=== PATIENT | male | born 1960 | race Two or more races ===

== ENCOUNTER 2017-03-16 01:53 | Emergency (ER) | payer MEDICAID, OTHER ==
[~2017-03-16] VITALS: Ht 170.2 cm; Wt 57.6 kg
--- NOTE | 2017-03-16 01:53 | NUR ---
BIBRA 62 FROM [facility] FOR C/O MIDSTERNAL CP AND SOB X 3 HOURS. PATIENT HAS HISTORY OF ANXIETY. PATIENT WAS GIVEN 162 OF ASA AND NITRO SPRAY X3 IN FIELD. PT IS ALERT AND ORIENTED X4. AMBULATORY WITH STEADY GAIT. PATIENT PLACED IN GOWN AND MONITOR. MD AT BEDSIDE FOR EVALUATION.
--- NOTE | 2017-03-16 01:58 | NUR ---
EMT AT BEDSIDE FOR EKG
[2017-03-16 02:09] LABS: BASOPHILS % (AUTO) 0.3 % (0.0-2.0); EOSINOPHILS % (AUTO) 0.8 % (0.0-6.0); HEMATOCRIT 37 % (39-51); HEMOGLOBIN 12.6 g/dL (13.5-17.5); LYMPHOCYTES # (AUTO) 1.7 /CMM (0.8-4.8); LYMPHOCYTES % (AUTO) 49.5 % (20.0-44.0); MEAN CORPUSCULAR HEMOGLOBIN 32 PG (26.0-33.0); MEAN CORPUSCULAR HGB CONC 34 g/dl (31.0-36.0); MEAN CORPUSCULAR VOLUME 93 fL (80-96); MONOCYTES # (AUTO) 0.3 /CMM (0.1-1.30); MONOCYTES % (AUTO) 8.8 % (2.0-12.0); NEUTROPHILS # (AUTO) 1.4 /CMM (1.8-8.9); NEUTROPHILS % (AUTO) 40.6 % (43.0-81.0); PLATELET COUNT (AUTO) 177 /CMM (150-450); RED BLOOD CELL COUNT(AUTO) 3.98 MIL/uL (4.5-6.0); WHITE BLOOD COUNT (AUTO) 3.4 K/uL (4.3-11.0)
[2017-03-16 02:20] LABS: CALCIUM, SERUM 9.4 mg/dL (8.5-10.1); CARBON DIOXIDE 23 mmol/L (21-32); CHLORIDE 101 mmol/L (98-107); CREATININE 0.8 mg/dL (0.6-1.3); GLUCOSE 89 mg/dL (74-106); POTASSIUM 3.7 mmol/L (3.5-5.1); SODIUM SERUM 139 mmol/L (136-145); UREA NITROGEN, BLOOD 8 mg/dL (7-18)
[2017-03-16 02:29] LABS: TROPONIN I < 0.017 ng/mL (0.00-0.056)
[2017-03-16 02:30] LABS: INR 0.89 (0.87-1.13); PROTHROMBIN TIME 9.4 SECS (9.5-12.7)
[2017-03-16 03:27] VITALS: BP 134/72
--- NOTE | 2017-03-16 03:28 | NUR ---
Patient discharged to home in stable condition. Written and verbal after care instructions given. Patient verbalizes understanding of instruction. Patient ambulatory with steady gait.
[2017-03-18] MEDS ORDERED: ESCI10TA PO (09:53)
== END 2017-03-16 03:33 | disposition home or self-care (01) ==
LOC: ER 01:54
DX: F41.9 Anxiety disorder, unspecified (principal); F17.200 Nicotine dependence, unspecified, uncomplicated
CPT/HCPCS: 36415; 71010-TC; 80048-TC; 84484-TC; 85025-TC; 85730-TC; A4606; J2060; Z7610

== ENCOUNTER 2017-03-16 08:20 | Inpatient (IN) | payer MEDICAID, OTHER ==
[~2017-03-16] VITALS: Ht 170.2 cm; Wt 67.6 kg
[2017-03-16 04:00] VITALS: BP 136/91
--- NOTE | 2017-03-16 08:25 | NUR ---
PATIENT PRESENTS TO ER C/O CHEST DISCOMFORT AND TIGHTNESS. STATING HE FEELS THE DISCOMFORT FROM ABDOMEN UP TO HIS THROAT. PATIENT IS A/OX 4. BREATHING EVEN AND UNLABORED. NO SOB. VITALS STABLE. SAFETY AND COMFORT MEASURES IN PLACE. AWAITING MD ORDERS.
--- NOTE | 2017-03-16 08:35 | NUR ---
NEW IV STARTED ON RAC, 18 G. BLOOD DRAWN AND SENT TO LAB.
--- NOTE | 2017-03-16 08:45 | NUR ---
PATIENT MEDICATED PER MD ORDERS.
[2017-03-16 08:48] LABS: BASOPHILS % (AUTO) 1.1 % (0.0-2.0); EOSINOPHILS % (AUTO) 0.3 % (0.0-6.0); HEMATOCRIT 36 % (39-51); HEMOGLOBIN 12.2 g/dL (13.5-17.5); LYMPHOCYTES # (AUTO) 1.1 /CMM (0.8-4.8); LYMPHOCYTES % (AUTO) 33.8 % (20.0-44.0); MEAN CORPUSCULAR HEMOGLOBIN 32 PG (26.0-33.0); MEAN CORPUSCULAR HGB CONC 34 g/dl (31.0-36.0); MEAN CORPUSCULAR VOLUME 93 fL (80-96); MONOCYTES # (AUTO) 0.5 /CMM (0.1-1.30); MONOCYTES % (AUTO) 16.6 % (2.0-12.0); NEUTROPHILS # (AUTO) 1.5 /CMM (1.8-8.9); NEUTROPHILS % (AUTO) 48.2 % (43.0-81.0); PLATELET COUNT (AUTO) 172 /CMM (150-450); RDW COEFFICIENT OF VARIATION 14.4 (11.5-15.0); RED BLOOD CELL COUNT(AUTO) 3.84 MIL/uL (4.5-6.0); WHITE BLOOD COUNT (AUTO) 3.1 K/uL (4.3-11.0)
--- NOTE | 2017-03-16 08:56 | NUR ---
PATIENT C/O EPIGASTRIC PAIN, STATING MAALOX HELPS SOMETIME. MD INFORMED, NEW ORDERS RECEIVED, WILL IMPLEMENT.
[2017-03-16 08:57] LABS: CALCIUM, SERUM 9.9 mg/dL (8.5-10.1); CARBON DIOXIDE 23 mmol/L (21-32); CHLORIDE 99 mmol/L (98-107); CREATININE 0.7 mg/dL (0.6-1.3); GLUCOSE 93 mg/dL (74-106); POTASSIUM 3.5 mmol/L (3.5-5.1); SODIUM SERUM 138 mmol/L (136-145); UREA NITROGEN, BLOOD 7 mg/dL (7-18)
[2017-03-16 09:05] LABS: TROPONIN I < 0.017 ng/mL (0.00-0.056)
[2017-03-16 09:10] LABS: INR 0.91 (0.87-1.13); PROTHROMBIN TIME 9.7 SECS (9.5-12.7)
[2017-03-16 09:22] LABS: BAND % (MANUAL) 3 % (0.0-5.0); BASOPHILS % (MANUAL) 0 % (0.0-2.0); EOSINOPHILS % (MANUAL) 0 % (0-4); LYMPHOCYTES % (MANUAL) 46 % (16-48); MONOCYTES % (MANUAL) 12 % (0-11.0); NEUTROPHILS % (MANUAL) 39 (42-76)
--- NOTE | 2017-03-16 10:01 | NUR ---
ROOM CHANGED TO [facility]
--- NOTE | 2017-03-16 10:10 | NUR ---
REPORT GIVEN TO RNSTEPHANIE FOR ADMISSION
--- NOTE | 2017-03-16 10:20 | NUR ---
PATIENT TRANSFERRED TO [facility] VIA ACLS PROTOCOL. RNSTEPHANIE TO PROVIDE NAKIA.
[2017-03-16 10:50] VITALS: BP 153/90
[2017-03-16 11:30] VITALS: BP 153/90
[2017-03-16 12:00] VITALS: BP 139/86
[2017-03-16 13:45] LABS: ALBUMIN 4.3 g/dL (3.4-5.0); BILIRUBIN,DIRECT 0.1 mg/dL (0.0-0.2); BILIRUBIN,TOTAL 0.4 mg/dL (0.2-1.0); TOTAL PROTEIN, SERUM 7.7 g/dL (6.4-8.2)
[2017-03-16 16:00] VITALS: BP 138/93
[2017-03-16 20:00] VITALS: BP 136/93
--- NOTE | 2017-03-16 20:00 | NUR ---
RN NOTES RECEIVED PATIENT IN BED, ALERT AND ORIENTED X4, ANXIOUS, NO SOB, NO RESPIRATORY DISTRESS, TOLERATING ROOM AIR, LUNG SOUNDS ARE CLEAR, SPO2 96%, COMPLAINING OF PAIN OF 6/10 TO CHEST, HEADACHE, UPPER BACK, RECEIVED NORCO FROM AM SHIFT, NOT DUE TO GIVE ANOTHER ONE YET. ABDOMEN SOFT AND NON-TENDER, ACTIVE BOWEL SOUNDS, RIGHT FOREARM PERIPHERAL LINE IS PATENT AND INFUSING WELL. NEEDS ATTENDED, CALL LIGHT WITHIN REACH.
[2017-03-17] VITALS: BP 134/85
[2017-03-17 04:00] VITALS: BP 136/91
[2017-03-17 06:00] VITALS: BP 136/89
--- NOTE | 2017-03-17 06:30 | NUR ---
RN NOTES PATIENT IN BED, ALERT AND AWAKE, NO SOB, NO RESPIRATORY DISTRESS, ON ROOM AIR, COMPLAINED OF PAIN DURING SHIFT, GIVEN NORCO 5/325 MG PO PRN FOR PAIN OF BACK OF NECK, CHEST AND UPPER BACK. ALSO GIVEN ATIVAN 1MG PO PRN FOR ANXIETY, SLEPT 4 HOURS INTERMITTENTLY, BEING AWAKEN FOR V/S. NEEDS ATTENDED, CALL LIGHT WITHIN REACH.
--- NOTE | 2017-03-17 07:30 | NUR ---
PT RECEIVED RESTING COMFORTABLY IN BED WITH EYES CLOSED. NO S/S OR C/O PAIN OR DISTRESS NOTED. SIDE RAILS UP X2, CALL LIGHT LEFT WITHIN REACH. WILL CONTINUE PLAN OF CARE.
[2017-03-17 07:33] LABS: BASOPHILS % (AUTO) 0.2 % (0.0-2.0); EOSINOPHILS # (AUTO) 0.1 /CMM (0.0-0.7); EOSINOPHILS % (AUTO) 1.6 % (0.0-6.0); HEMATOCRIT 37 % (39-51); HEMOGLOBIN 12.5 g/dL (13.5-17.5); LYMPHOCYTES # (AUTO) 0.9 /CMM (0.8-4.8); LYMPHOCYTES % (AUTO) 27.6 % (20.0-44.0); MEAN CORPUSCULAR HEMOGLOBIN 32 PG (26.0-33.0); MEAN CORPUSCULAR HGB CONC 34 g/dl (31.0-36.0); MEAN CORPUSCULAR VOLUME 94 fL (80-96); MONOCYTES # (AUTO) 0.6 /CMM (0.1-1.30); MONOCYTES % (AUTO) 16.3 % (2.0-12.0); NEUTROPHILS # (AUTO) 1.9 /CMM (1.8-8.9); NEUTROPHILS % (AUTO) 54.3 % (43.0-81.0); PLATELET COUNT (AUTO) 143 /CMM (150-450); RED BLOOD CELL COUNT(AUTO) 3.91 MIL/uL (4.5-6.0); WHITE BLOOD COUNT (AUTO) 3.4 K/uL (4.3-11.0)
[2017-03-17 07:59] LABS: ALBUMIN 3.8 g/dL (3.4-5.0); BILIRUBIN,TOTAL 0.7 mg/dL (0.2-1.0); CALCIUM, SERUM 8.6 mg/dL (8.5-10.1); CREATININE 0.7 mg/dL (0.6-1.3); MAGNESIUM 1.8 mg/dL (1.8-2.4); PHOSPHORUS 2.8 mg/dL (2.5-4.9); POTASSIUM 3.6 mmol/L (3.5-5.1); TOTAL PROTEIN, SERUM 7.1 g/dL (6.4-8.2)
[2017-03-17 08:18] LABS: THYROID STIMULATING HORMONE 4.546 uIU/mL (0.358-3.74)
--- NOTE | 2017-03-17 11:14 | NUR ---
WOUND CARE CONSULT: PT OFF UNIT AT THIS TIME. TRINITY SCORE CURRENTLY 21. WILL SEE PT PT CONDITION PERMITS.
[2017-03-17 16:13] VITALS: BP 118/62
--- NOTE | 2017-03-17 16:15 | NUR ---
DR MILLER AT BEDSIDE
--- NOTE | 2017-03-17 18:18 | NUR ---
CHANGE OF SHIFT REPORT PT RESTING COMFORTABLY IN BED. NO S/S OR C/O PAIN OR DISTRESS NOTED. SIDE RAILS UP X2, CALL LIGHT LEFT WITHIN REACH. PT KEPT CLEAN, DRY, AND COMFORTABLE. NO SIGNIFICANT CHANGES SINCE PREVIOUS SHIFT. WILL GIVE REPORT TO JOSE MAGANA.
[2017-03-17 20:00] VITALS: BP 120/71
--- NOTE | 2017-03-17 20:00 | NUR ---
RN NOTES RECEIVED PATIENT IN BED, ALERT AND ORIENTED X4, ANXIOUS, NO SOB, NO RESPIRATORY DISTRESS, RECEIVED NORCO EARLIER, RIGHT FA PERIPHERAL LINE IS PATENT AND INFUSING WELL, VOIDING WELL USING URINAL, NEEDS ATTENDED, CALL LIGHT WITHIN REACH.
--- NOTE | 2017-03-17 23:00 | NUR ---
RN NOTES GIVEN REPORT TO MOY TO ASSUME CARE OF PATIENT.
--- NOTE | 2017-03-17 23:01 | NUR ---
MS/RN NOTES PT RECEIVED RESTING COMFORTABLY IN BED. SEMI FOWLERS POSITION. A/OX4. ON RA, BREATHING EVEN AND UNLABORED. DENIES SOB AND NOTES GENERAL ACHES/PAIN THAT IS MINOR, DOES NOT WANT PAIN MEDICATION AT THIS TIME. PREFERS TO TAKE ATIVAN TO GET SOME SLEEP TONIGHT. IV TO RFA PATENT AND INTACT RUNNING IVF ORDERED. DENIES CHEST PAIN, N/V. BED IN LOW/LOCKED POSITION, CALL LIGHT IN REACH. SIDE RAILS UPX2. WILL CONTINUE TO MONITOR
--- NOTE | 2017-03-18 06:58 | NUR ---
MS/RN NOTES PT ASLEEP, EASILY AROUSABLE TO NAME. ON RA, BREATHING EVEN AND UNLABORED. NO S/S OF DISTRESS NOTED. IV TO RFA PATENT AND INTACT RUNNING IVF ORDERED. ADMINISTERED NORCO AND ATIVAN PRN. PT SLEPT WELL DURING THE NIGHT. NO COMPLAINTS OF CHEST PAIN AT THIS TIME. NO SOB NOTED. MADE PT COMFORTABLE AND ALL NEEDS MET DURING SHIFT. WILL ENDORSE TO AM SHIFT NAKIA.
--- NOTE | 2017-03-18 07:20 | NUR ---
MS RN OPENING NOTES RECEIVED PT FROM NIGHTSHIFT NURSE IN [place] CONDITION. PT IS A/O X4. NO SOB NOTED. BREATHING IS EVEN AND UNLABORED. PT COMPLAINS OF A HEADACHE HEADACHE RATED 6/10. WILL ADMINISTER PRN PAIN MEDICATION. PT ALSO HAS HIGH ANXIETY AT THIS TIME. NIGHTSHIFT NURSE WILL ADMINISTER PRN ATIVAN. IV PRESENT ON LEFT FA 18G INFUSING NS @75ML/HR/ PT IS TOLERATING INFUSION WELL. NO REDNESS OR SIGNS OF INFILTRATION NOTED. BED IN LOW LOCKED POSITION, SIDE RAILS UP X2, CALL LIGHT WITHIN REACH. WILL CONTINUE TO MONITOR
[2017-03-18 08:00] VITALS: BP 141/90
[2017-03-18] MEDS ORDERED: ESCI10TA PO (09:53)
--- NOTE | 2017-03-18 11:43 | NUR ---
MS RN NOTES PT HAD A FALL WITNESSED AND REPORTED BY DR. TYLER. ACCORDING TO THE PT, HE WAS WALKING AND FELT WEAK SO HE HELD THE WALL AND FELL SLOWLY IN THE HALLWAY. PT GOT UP RIGHT AWAY BY HIMSELF AND WALKED BACK TO HIS ROOM. VITALS SIGNS TAKEN AND WNL. PT DENIES ANY PAIN AT THIS TIME. NO HEAD INJURIES OR INJURES TO ANY PART OF THE PT'S BODY ASSESSED. PT REMAINS A/O X4. LOC REMAINED THE SAME 15MIN POST FALL AND UNCHANGED 30MIN AFTER. ALL EXTREMITIES WNL, ROM ASSESSED. PT. SAFELY ASSISTED BACK TO BED. BED ALARM ON. PT STATED THAT HE WAS HIGHLY ANXIOUS ABOUT HIS DISCHARGE AND BEING HOME ALONE. HE ALSO STATED THAT HIS NIECE WILL BE BACK FROM [place] TOMORROW MORNING AND WILL BE ABLE TO TAKE CARE. ADAN PRATT THE MAINSPRING FABRICATION SUPERVISOR WAS INFORMED. D/C ORDER HELD FOR TODAY TO MONITOR THE PT FOR SAFETY. FURNITURE RESTORER ALSO INFORMED AND SPOKE TO PT IN REGARDS TO DISCHARGE PLAN. PT AGREES TO BE DISCHARGED TOMORROW.
[2017-03-18 16:00] VITALS: BP 143/98
--- NOTE | 2017-03-18 18:07 | NUR ---
MS RN NOTES INCIDENT REPORT COMPLETED. REFERENCE NUMBER IS: Unique Id: [id number]
--- NOTE | 2017-03-18 19:30 | NUR ---
MS RN NOTE RECEIVED PATIENT FROM DAY SHIFT, PATIENT IS ALERT AND ORIENTEDX4, AMBULATORY, NO S/S OF RESPIRATORY DISTRESS OR PAIN AT THIS TIME. IV ON RIGHT FA IS PATENT AND AND INTACT, FLUID IS RUNNING. PATIENT IS ANTICIPATED TO DC IN AM TOMORROW. SRX2, BED IN LOW POSITION, CALL LIGHT WITHIN REACH, WILL CONTINUE TO MONITOR PATIENT.
--- NOTE | 2017-03-18 19:35 | NUR ---
MS RN CLOSING NOTES PT. REMAINS STABLE. ALL NEEDS WERE MET DURING SHIFT AND ORDERS CARRIED OUT ACCORDINGLY. PT DENIES ANY PAIN AT THIS TIME. PT REMAINED A/O X4 THROUGHOUT SHIFT. BED IN LOW LOCKED POSITION, SIDE RAILS UP X2, CALL LIGHT WITHIN EASY REACH, BED ALARM ON, URINAL BY BEDSIDE. PT. INFORMED TO CALL THE NURSE OR CARDIAC SPECIALIST IF HE NEEDS TO GET UP. PT VERBALIZED UNDERSTANDING. WILL ENDORSE TO NIGHTSHIFT NURSE FOR NAKIA
[2017-03-18 20:00] VITALS: BP 125/86
--- NOTE | 2017-03-19 04:47 | NUR ---
MS RN NOTE PATIENT WOKE UP FROM SLEEP, AND STATED THAT HE FEELS ANXIOUS ASKING THE MEDICATION FOR IT. ATIVAN 1MG PO GIVEN. WILL MONITOR EFFECTIVENESS.
--- NOTE | 2017-03-19 06:48 | NUR ---
MS RN NOTE PATIENT IS SLEEPING IN BED COMFORTABLY, NO ACUTE EVENT NOTED DURING THE ASSISTANT COUNSEL. IV ON RIGHT FA IS PATENT AND INTACT, FLUID IS RUNNING. NO S/S OF RESPIRATORY DISTRESS OR PAIN AT THIS TIME. WILL ENDORSE TO DAY SHIFT NURSE FOR NAKIA.
--- NOTE | 2017-03-19 07:15 | NUR ---
RN Initial Notes: Patient resting in bed. Patient alert oriented x4. Non-labored breathing noted on room air. Patient denies pain. IV site on right forearm intact and patent. Bed in lowest position. Call light within reach. Will continue to monitor.
[2017-03-19 08:00] VITALS: BP 122/80
--- NOTE | 2017-03-19 11:20 | NUR ---
MS RN Closing Notes: Patient discharged per Dr. Real's orders. Patient alert oriented x4. Patient stable. Denies headaches and chest pain at the moment. Patient is PERRLA. Non-labored breathing noted on room air. Patient educated to follow up with psych and primary care provider per Dr. Real's orders. Prescriptions given to patient. Valuables accounted for. Patient offered bus voucher but refused. IV taken out. No bleeding at site. Patient refused to have pictures of skin taken. Patient educated on chest pain and when to call 911. Patient ambulatory accompanied by PACKING ROOM SUPERVISOR to the Hospital's exist. He informed me that he ordered a taxi.
== END 2017-03-19 11:30 | disposition home or self-care (01) | DRG 755 ==
LOC: ER 08:22 → TELE 10:11 → MED 10:40 → TELE 10:42 → MED 03-17 08:35
PROVIDERS: ADMIT Nurse Practitioner Acute Care; ATTEND Nurse Practitioner Acute Care
DX: F45.41 Pain disorder exclusively related to psychological factors (principal); K76.0 Fatty (change of) liver, not elsewhere classified; F33.1 Major depressive disorder, recurrent, moderate; S71.101A Unspecified open wound, right thigh, initial encounter; I10 Essential (primary) hypertension; K21.9 Gastro-esophageal reflux disease without esophagitis; D63.8 Anemia in other chronic diseases classified elsewhere; F41.0 Panic disorder [episodic paroxysmal anxiety]; F17.200 Nicotine dependence, unspecified, uncomplicated; X58.XXXA Exposure to other specified factors, initial encounter; Y92.009 Unspecified place in unspecified non-institutional (private) residence as the place of occurrence of the external cause; Z79.899 Other long term (current) drug therapy; D64.9 Anemia, unspecified; F10.20 Alcohol dependence, uncomplicated; Y90.9 Presence of alcohol in blood, level not specified
CPT/HCPCS: 36415; 71010-TC; 71250-TC; 80048-TC; 80053-TC; 80061-TC; 80076-TC; 83690-TC; 83735-TC; 84100-TC; 84443-TC; 84484-TC; 85025-TC; 85730-TC; 87081-TC; A4606; A9502; J2270; J2785; J3490; J7030; Z7610

== ENCOUNTER 2017-03-29 16:54 | Emergency (ER) | payer OTHER ==
[~2017-03-29] VITALS: Ht 170.2 cm; Wt 57.2 kg
[~2017-03-29 16:54] MED LIST: ESCI10TA PO
--- NOTE | 2017-03-29 16:56 | NUR ---
PT AMBULATORY TO ER BED 09. C/O CHEST PAIN AND DIZZINESS THAT STARTED AT 1400 TODAY. PT IS ALSO C/O GENERALIZED WEAKNESS. LOSS OF APETITE. GOWNED AND PLACED ON MONITOR. NAD NOTED. AWAITING MD DIOR.
--- NOTE | 2017-03-29 17:02 | NUR ---
DR SHETTY AT BEDSIDE FOR EVAL.
--- NOTE | 2017-03-29 17:43 | NUR ---
IV LINE STARTED BLOOD DRAWN AND SENT TO LAB.
[2017-03-29 17:57] LABS: BASOPHILS % (AUTO) 0.3 % (0.0-2.0); EOSINOPHILS % (AUTO) 0.4 % (0.0-6.0); HEMATOCRIT 40 % (39-51); HEMOGLOBIN 13.4 g/dL (13.5-17.5); LYMPHOCYTES % (AUTO) 20.8 % (20.0-44.0); MEAN CORPUSCULAR HEMOGLOBIN 32 PG (26.0-33.0); MEAN CORPUSCULAR HGB CONC 34 g/dl (31.0-36.0); MEAN CORPUSCULAR VOLUME 94 fL (80-96); MONOCYTES # (AUTO) 0.3 /CMM (0.1-1.30); MONOCYTES % (AUTO) 5.7 % (2.0-12.0); NEUTROPHILS # (AUTO) 3.6 /CMM (1.8-8.9); NEUTROPHILS % (AUTO) 72.8 % (43.0-81.0); PLATELET COUNT (AUTO) 195 /CMM (150-450); RDW COEFFICIENT OF VARIATION 14.7 (11.5-15.0); RED BLOOD CELL COUNT(AUTO) 4.27 MIL/uL (4.5-6.0); WHITE BLOOD COUNT (AUTO) 4.9 K/uL (4.3-11.0)
--- NOTE | 2017-03-29 17:59 | NUR ---
RADIOLOGY AT BEDSIDE FOR CHEST XRAY.
[2017-03-29 18:04] LABS: CALCIUM, SERUM 10.1 mg/dL (8.5-10.1); CARBON DIOXIDE 30 mmol/L (21-32); CHLORIDE 95 mmol/L (98-107); CREATININE 0.8 mg/dL (0.6-1.3); GLUCOSE 145 mg/dL (74-106); POTASSIUM 3.1 mmol/L (3.5-5.1); SODIUM SERUM 136 mmol/L (136-145); UREA NITROGEN, BLOOD 7 mg/dL (7-18)
[2017-03-29 18:14] LABS: INR 0.88 (0.87-1.13); PROTHROMBIN TIME 9.1 SECS (9.5-12.7)
[2017-03-29 18:20] LABS: TROPONIN I < 0.017 ng/mL (0.00-0.056)
--- NOTE | 2017-03-29 19:19 | NUR ---
Patient discharged to home in stable condition. Written and verbal after care instructions given. Patient verbalizes understanding of instruction.IV removed. Catheter intact and site benign. Pressure and 4x4 applied to site. No bleeding noted.
[2017-03-29 19:20] VITALS: BP 128/77
== END 2017-03-29 19:20 | disposition home or self-care (01) ==
LOC: ER 16:55
DX: R07.89 Other chest pain (principal); F41.9 Anxiety disorder, unspecified
CPT/HCPCS: 36415; 71010-TC; 80048-TC; 84484-TC; 85025-TC; 85730-TC; A4606; Z7610

== ENCOUNTER 2017-08-02 02:07 | Emergency (ER) | payer MEDICAID, OTHER ==
[~2017-08-02] VITALS: Ht 172.7 cm; Wt 72.6 kg
--- NOTE | 2017-08-02 02:15 | NUR ---
TO BED 4 A 56 YO MALE PATIENT BB RA89 FROM BUS BENCH C/O ETOH/ANXIETY. VSS. NAD NOTED. SKIN WARM AND DRY. COMFORT MEASURES RENDERED. SAFETY IN PLACE.
--- NOTE | 2017-08-02 03:15 | NUR ---
PATIENT IS SLEEPING COMFORTABLY AT THIS TIME.
[2017-08-02 05:44] VITALS: BP 133/79
--- NOTE | 2017-08-02 05:44 | NUR ---
Patient discharged to home in stable condition. Written and verbal after care instructions given. Patient verbalizes understanding of instruction. Patient is ambulatory with steady gait. vss. Nad noted. No further complaints.
== END 2017-08-02 05:45 | disposition home or self-care (01) ==
LOC: ER 02:08
DX: F10.129 Alcohol abuse with intoxication, unspecified (principal); F41.9 Anxiety disorder, unspecified; F17.200 Nicotine dependence, unspecified, uncomplicated
CPT/HCPCS: 99283; A4606; Z7610

== ENCOUNTER 2018-03-02 14:25 | Emergency (ER) | payer MEDICAID ==
[~2018-03-02] VITALS: Ht 177.8 cm; Wt 74.8 kg
[2018-03-02] MEDS ORDERED: diphenhydrAMINE HCL 50 MG/ML VIAL IM ONE (14:30)
[2018-03-02] MEDS ORDERED: HALOPERIDOL LACTATE INJ 5 MG/ML VIAL IM ONE (14:30)
[2018-03-02] MEDS ORDERED: HALOPERIDOL LACTATE INJ 5 MG/ML VIAL ONE (14:53)
[2018-03-02] MEDS ORDERED: diphenhydrAMINE HCL 50 MG/ML VIAL ONE (14:53)
[2018-03-02 15:04] LABS: BASOPHILS # (AUTO) 0.1 /CMM (0.0-0.2); EOSINOPHILS % (AUTO) 0.7 % (0.0-6.0); HEMATOCRIT 45 % (39-51); HEMOGLOBIN 14.3 g/dL (13.5-17.5); LYMPHOCYTES # (AUTO) 2.3 /CMM (0.8-4.8); LYMPHOCYTES % (AUTO) 40.2 % (20.0-44.0); MEAN CORPUSCULAR HEMOGLOBIN 29 PG (26.0-33.0); MEAN CORPUSCULAR HGB CONC 32 g/dl (31.0-36.0); MEAN CORPUSCULAR VOLUME 91 fL (80-96); MONOCYTES # (AUTO) 0.4 /CMM (0.1-1.30); MONOCYTES % (AUTO) 6.1 % (2.0-12.0); PLATELET COUNT (AUTO) 265 /CMM (150-450); WHITE BLOOD COUNT (AUTO) 5.8 K/uL (4.3-11.0)
[2018-03-02 15:25] LABS: ALBUMIN 4.2 g/dL (3.4-5.0); BILIRUBIN,DIRECT 0.1 mg/dL (0.0-0.2); BILIRUBIN,TOTAL 0.4 mg/dL (0.2-1.0); CREATININE 0.8 mg/dL (0.6-1.3); SALICYLATE 5.3 mg/dL (2.8-20.0); TOTAL PROTEIN, SERUM 7.8 g/dL (6.4-8.2)
[2018-03-02] MEDS ORDERED: LORAZEPAM INJ 2 MG/ML VIAL IM ONE (16:00)
[2018-03-02] MEDS ORDERED: LORAZEPAM INJ 2 MG/ML VIAL ONE (16:27)
[2018-03-02 17:57] LABS: APPEARANCE,URINE Clear (CLEAR); BILIRUBIN,URINE Negative (NEGATIVE); BLOOD, URINE Negative Ery/uL (NEGATIVE); COLOR,URINE Yellow (YELLOW); KETONES,URINE Negative (NEGATIVE); LEUKOCYTE ESTERASE ,URINE Negative (NEGATIVE); NITRITE, URINE Negative (NEGATIVE); PH,URINE 7.5 (5.0-8.0); PROTEIN,URINE Negative (NEGATIVE); UGLUCOSE Negative (NEGATIVE); UROBILINOGEN,URINE 0.2 EU/dL (0.2)
--- NOTE | 2018-03-02 19:55 | NUR ---
Patient discharged to home in stable condition. Written and verbal after care instructions given. Patient verbalizes understanding of instruction. PT AMBULATED WITH STEADY GAIT NOTED OUT OF ER. PT AAOX4. NO S/S OF DISTRESS NOTED UPON DISCHARGE.
[2018-03-02 19:56] VITALS: BP 154/88
== END 2018-03-02 19:57 | disposition home or self-care (01) ==
LOC: ER 14:31
DX: F10.129 Alcohol abuse with intoxication, unspecified (principal); R45.1 Restlessness and agitation; F41.9 Anxiety disorder, unspecified; F17.200 Nicotine dependence, unspecified, uncomplicated; D64.9 Anemia, unspecified; Z60.2 Problems related to living alone; Z79.899 Other long term (current) drug therapy; Y90.9 Presence of alcohol in blood, level not specified
CPT/HCPCS: 36415; 80048; 80076; 80305; 80329; 81001; 83690; 85025; 93005; 96372 ×2; 99285; A4606; G0480 ×2; J1200; J1630; J2060; Z7610; 81000-TC

== ENCOUNTER 2018-10-11 18:40 | Emergency (ER) | payer MEDICAID, OTHER ==
[~2018-10-11] VITALS: Ht 170.2 cm; Wt 57.2 kg
[2018-10-11 19:23] LABS: EOSINOPHILS % (AUTO) 0.4 % (0.0-6.0); LYMPHOCYTES # (AUTO) 1.5 /CMM (0.8-4.8); PLATELET COUNT (AUTO) 205 /CMM (150-450); WHITE BLOOD COUNT (AUTO) 8.8 K/uL (4.3-11.0)
[2018-10-11 19:28] LABS: BASOPHILS % (AUTO) 0.5 % (0.0-2.0); HEMATOCRIT 43 % (39-51); HEMOGLOBIN 14.9 g/dL (13.5-17.5); LYMPHOCYTES % (AUTO) 17.4 % (20.0-44.0); MEAN CORPUSCULAR HGB CONC 34 g/dl (31.0-36.0); MEAN CORPUSCULAR VOLUME 93 fL (80-96); MONOCYTES # (AUTO) 0.6 /CMM (0.1-1.30); MONOCYTES % (AUTO) 7.4 % (2.0-12.0); NEUTROPHILS # (AUTO) 6.5 /CMM (1.8-8.9); NEUTROPHILS % (AUTO) 74.3 % (43.0-81.0); RED BLOOD CELL COUNT(AUTO) 4.67 MIL/uL (4.5-6.0)
--- NOTE | 2018-10-11 19:32 | NUR ---
IV LINE ESTABLISHED, BLOOD DRAWN AND SENT TO LAB. ENDORSED TO RESISTOR COATER RN.
[2018-10-11 19:35] LABS: CALCIUM, SERUM 8.8 mg/dL (8.5-10.1); CARBON DIOXIDE 26 mmol/L (21-32); CHLORIDE 97 mmol/L (98-107); GLUCOSE 78 mg/dL (74-106); POTASSIUM 3.4 mmol/L (3.5-5.1); SODIUM SERUM 138 mmol/L (136-145); UREA NITROGEN, BLOOD 10 mg/dL (7-18)
[2018-10-11 19:40] LABS: CREATININE 0.8 mg/dL (0.6-1.3)
[2018-10-11] MEDS ORDERED: IV NS 0.9% 1,000 ML BAG IV ONE (20:30)
[2018-10-11] MEDS ORDERED: KETOROLAC TROMETHAMINE INJ 30 MG/ML VIAL IV ONE (20:30)
--- NOTE | 2018-10-11 20:30 | NUR ---
Addendum IV end time: NS 1 liter: start time: 2030 pm; end time 2133 pm; PIV # 18 RAC; PIV # 18
[2018-10-11] MEDS ORDERED: KETOROLAC TROMETHAMINE INJ 30 MG/ML VIAL ONE (21:00)
--- NOTE | 2018-10-11 21:35 | NUR ---
the patient will be [facility] a homeless [facility] - per patient request. He wants to go to a [facility] housing Plan: school services officer consult - for homeless placement The patient was offered dinner VSS; afebrile
--- NOTE | 2018-10-11 21:39 | NUR ---
IV removed. Catheter intact and site benign. Pressure and 4x4 applied to site. No bleeding noted.
--- NOTE | 2018-10-11 23:15 | NUR ---
Patient is resting comfortably in bed with eyes closed. Easily aroused. VSS
[2018-10-11 23:26] VITALS: BP 117/80
--- NOTE | 2018-10-12 04:12 | NUR ---
PT WAS VERBALLY ABUSIVE TOWARDS STAFF. ATTEMPTED TO CALM PATIENT DOWN, REASSURED REGARDING BRANCH ADMINISTRATOR IN AM, PT CURSING AT STAFF, SECURITY CALLED, PT REFUSED TO SIGN ANY PAPERWORK, PT LEFT, AMBULATORY WITH STEADY GAIT, PT IS WEARING WEATHER APPROPRIATE CLOTHING. LEFT WITH ALL BELONGINGS, ESCORTED BY SECURITY.
== END 2018-10-12 04:15 | disposition left against medical advice (07) ==
LOC: ER 18:57
DX: S19.80XA Other specified injuries of unspecified part of neck, initial encounter (principal); G56.22 Lesion of ulnar nerve, left upper limb; F41.9 Anxiety disorder, unspecified; E87.6 Hypokalemia; R42 Dizziness and giddiness; F10.10 Alcohol abuse, uncomplicated; F17.200 Nicotine dependence, unspecified, uncomplicated; F32.9 Major depressive disorder, single episode, unspecified; K21.9 Gastro-esophageal reflux disease without esophagitis; R00.0 Tachycardia, unspecified; Y90.9 Presence of alcohol in blood, level not specified; Z86.12 Personal history of poliomyelitis; Z59.0 Homelessness; Z60.2 Problems related to living alone; W22.8XXA Striking against or struck by other objects, initial encounter; Y93.89 Activity, other specified; Y92.89 Other specified places as the place of occurrence of the external cause; Y99.8 Other external cause status
CPT/HCPCS: 36415; 71045; 80048; 84484; 85025; 93005; 96361; 96374; 99284; J1885; J7030

== ENCOUNTER 2018-10-12 05:11 | Emergency (ER) | payer MEDICAID ==
[~2018-10-12] VITALS: Ht 172.7 cm; Wt 56.7 kg
[2018-10-12 05:20] VITALS: BP 123/85
--- NOTE | 2018-10-12 05:20 | NUR ---
PT BIB RA 39 WITH A C/O HEADACHE. PT AMBULATED TO THE CHAIR OUTSIDE OF TRIAGE. PT WAS THEN MOVED TO THE TRIAGE ROOM. PT WAS ANSWERING QUESTIONS AND STATED THAT HE HAD A HEADACHE. DR FLANAGAN WAS NOTIFIED THAT THE PT HAD BEEN HERE AND DISCHARGED 1HR AGO AND RETURNED WITH A C/O HEADACHE. PT WAS FINISHED BEING TRIAGED AND I LEFT TO GET THE PT HIS PAIN MEDICATION.
--- NOTE | 2018-10-12 05:27 | NUR ---
UPON RETURN TO TRIAGE WITH THE PT'S MEDICATION, PT WAS NO LONGER IN TRIAGE. THE ER WAS SEARCHED WAS THE LOBBY. PT ELOPED. NOTIFIED.
[2018-10-12] MEDS ORDERED: ACETAMINOPHEN 325 MG TABLET ONE (05:28)
[2018-10-12] MEDS ORDERED: ACETAMINOPHEN 325 MG TABLET PO ONE (05:30)
== END 2018-10-12 05:28 | disposition left against medical advice (07) ==
LOC: ER 05:14
DX: R51 Headache (principal); K21.9 Gastro-esophageal reflux disease without esophagitis; F41.9 Anxiety disorder, unspecified; F32.9 Major depressive disorder, single episode, unspecified; F17.200 Nicotine dependence, unspecified, uncomplicated; Z60.2 Problems related to living alone; Z59.0 Homelessness; Z79.899 Other long term (current) drug therapy